=== PATIENT | male | born 2000 | race African-American/Black ===

== ENCOUNTER 2022-02-05 00:22 | Emergency (ER) | payer OTHER ==
[2022-02-05 00:54] LABS: Bilirubin Neg (Negative); Blood, Urine 250 (Negative); Clarity Cloudy (Clear); Glucose, Urine (Dipstick) Normal (Negative); Ketone, Urine Negative (Negative); Leukocyte 500 (Negative); Nitrite Negative (Negative); Protein, Urine (Dipstick) 100 mg/dl (Neg-Trace); Urobilinogen Normal mg/dL (Less than 2)
[2022-02-05 01:03] LABS: RBC/HPF Greater than 50 HPF (0-3)
[2022-02-05 01:04] LABS: Bacteria/HPF 4+ HPF (None Seen); Squamous Epithelial 0-3 HPF (0-3); WBC/HPF Greater than 50 HPF (0-3)
[2022-02-05] MEDS ORDERED: SMX/TMP 800-160mg/20 ML UDCUP PO SCH (01:30)
== END 2022-02-05 01:23 | disposition home or self-care (01) ==
LOC: CSHERS 00:22
DX: N39.0 Urinary tract infection, site not specified (principal)
CPT/HCPCS: 81003; 81015; 87086; 99283

== ENCOUNTER 2022-02-12 19:48 | Emergency (ER) | payer OTHER ==
[2022-02-12 20:56] LABS: Bilirubin Neg (Negative); Blood, Urine 250 (Negative); Clarity Cloudy (Clear); Glucose, Urine (Dipstick) Normal (Negative); Ketone, Urine Negative (Negative); Leukocyte 500 (Negative); Nitrite Negative (Negative); Protein, Urine (Dipstick) 100 mg/dl (Neg-Trace); Urobilinogen Normal mg/dL (Less than 2)
[2022-02-12 21:06] LABS: Bacteria/HPF 1+ HPF (None Seen); Epithelial Cast 0-3 LPF (None Seen); RBC/HPF Greater than 50 HPF (0-3); WBC/HPF Greater than 50 HPF (0-3)
[2022-02-12] MEDS ORDERED: Cefdinir 125 MG/5 ML Oral Suspension PO SCH (22:00)
[2022-02-12] MEDS ORDERED: Bacitracin 1 PK ONE (22:02)
== END 2022-02-12 22:01 | disposition home or self-care (01) ==
LOC: CSHERS 19:48
DX: N39.0 Urinary tract infection, site not specified (principal); R31.9 Hematuria, unspecified
CPT/HCPCS: 81003; 81015; 87086; 99283

== ENCOUNTER 2022-05-04 00:07 | Emergency (ER) | payer OTHER ==
[2022-05-04 00:58] LABS: Bilirubin Neg (Negative); Blood, Urine 250 (Negative); Clarity Clear (Clear); Glucose, Urine (Dipstick) Normal (Negative); Ketone, Urine Negative (Negative); Leukocyte 500 (Negative); Nitrite Negative (Negative); Protein, Urine (Dipstick) Negative (Neg-Trace); Specific Gravity, Urine 1.005 (1.005-1.030); Urobilinogen Normal mg/dL (Less than 2)
[2022-05-04 01:06] LABS: Bacteria/HPF Rare-Few HPF (None Seen); RBC/HPF 21-50 HPF (0-3); Squamous Epithelial 0-3 HPF (0-3); WBC/HPF Greater Than 50 HPF (0-3)
[2022-05-04] MEDS ORDERED: Cefdinir 125 MG/5 ML Oral Suspension PO SCH (04:00)
== END 2022-05-04 04:00 | disposition home or self-care (01) ==
LOC: CSHERS 00:07
DX: N39.0 Urinary tract infection, site not specified (principal)
CPT/HCPCS: 81003; 81015; 87086; 99284

== ENCOUNTER 2022-08-16 02:57 | Emergency (ER) | payer OTHER ==
[2022-08-16 03:57] LABS: Bilirubin Neg (Negative); Blood, Urine 250 (Negative); Clarity Cloudy (Clear); Glucose, Urine (Dipstick) Normal (Negative); Ketone, Urine Negative (Negative); Leukocyte 100 (Negative); Nitrite Negative (Negative); Protein, Urine (Dipstick) 100 mg/dl (Neg-Trace); Urobilinogen Normal mg/dL (Less than 2)
[2022-08-16 03:58] LABS: RBC/HPF Greater than 50 HPF (0-3)
[2022-08-16 03:59] LABS: Bacteria/HPF None Seen HPF (None Seen)
[2022-08-16] MEDS ORDERED: Ciprofloxacin 500 MG TAB ONE (04:53)
[2022-08-16] MEDS ORDERED: Cephalexin 125 MG/5 ML Oral Suspension PO SCH (05:00)
== END 2022-08-16 05:27 | disposition home or self-care (01) ==
LOC: CSHERS 02:57
DX: N39.0 Urinary tract infection, site not specified (principal)
CPT/HCPCS: 81003; 81015; 99283

== ENCOUNTER 2022-10-22 18:27 | Emergency (ER) | payer OTHER ==
[2022-10-22 19:06] LABS: Bilirubin Neg (Negative); Blood, Urine 250 (Negative); Clarity Cloudy (Clear); Glucose, Urine (Dipstick) Normal (Negative); Ketone, Urine Negative (Negative); Leukocyte 500 (Negative); Nitrite Negative (Negative); Protein, Urine (Dipstick) 100 mg/dl (Neg-Trace); Specific Gravity, Urine 1.015 (1.005-1.030); Urobilinogen Normal mg/dL (Less than 2); pH, Urine 6.5 (5.0-9.0)
[2022-10-22 19:27] LABS: Bacteria/HPF 4+ HPF (None Seen); Squamous Epithelial 0-3 HPF (0-3); WBC/HPF Greater than 50 HPF (0-3)
[2022-10-22 19:28] LABS: Mucous/LPF 2+ LPF (<2+)
[2022-10-22] MEDS ORDERED: Cefdinir 300 MG CAP PO SCH (20:00)
[2022-10-22] MEDS ORDERED: Cefdinir 125 MG/5 ML Oral Suspension PO SCH (20:30)
== END 2022-10-22 20:26 | disposition home or self-care (01) ==
LOC: CSHERS 18:27
DX: N30.00 Acute cystitis without hematuria (principal)
CPT/HCPCS: 81003; 81015; 99283